=== PATIENT | female | born 1990 | race Caucasian/White ===

== ENCOUNTER 2020-06-15 06:12 | Inpatient (IN) ==
[2020-06-15] MEDS ORDERED: Metoclopramide 10 MG/2 ML VIAL IVP PRN (06:20)
[2020-06-15] MEDS ORDERED: Famotidine 20 MG/2 ML VIAL IVP PRN (06:20)
[2020-06-15] MEDS ORDERED: Lidocaine 1% 20 ML MDV INFILT PRN (06:20)
[2020-06-15] MEDS ORDERED: Naloxone 0.4 MG/ML INJ IVP PRN (06:20)
[2020-06-15] MEDS ORDERED: Oxytocin 20 units/ LR 1000 mL 20 UNIT/1,000 ML BAG IVC SCH (06:30)
[2020-06-15 08:01] LABS: Amphetamine Screen,Urine Negative ng/mL (Cutoff=1000); Barbiturate Screen,Urine Negative ng/mL (Cutoff=200); Benzodiazepines Screen,Urine Negative ng/mL (Cutoff=200); Cannabinoid Screen,Urine Negative ng/mL (Cutoff = 50); Cocaine Screen,Urine Negative ng/mL (Cutoff= 300); Opiate Screen,Urine Negative ng/mL (Cutoff=300); Phencyclidine Screen,Urine Negative ng/mL (Cutoff=25)
[2020-06-15] MEDS: Ringers Solution, Lactated 1,000 ML IVC SCH ×3 (08:37→17:28)
[2020-06-15 08:47] LABS: Basophils # 0.1 K/mcL (0.0-0.2); Basophils % 0.5 %; Eosinophils # 0.6 K/mcL (0.0-0.6); Eosinophils % 4.1 %; Hematocrit 34.9 % (35.3-44.9); Hemoglobin 11.8 g/dL (11.5-15.4); Immature Granulocytes % 0.6 % (0-4); Lymphocytes # 2.2 K/mcL (0.6-4.6); Lymphocytes % 16.1 %; Mean Corpuscular HGB Conc 33.8 g/dL (31.6-35.5); Mean Corpuscular Volume 106.4 fL (83.0-100.0); Mean Platelet Volume 9.8 fL (9.4-12.4); Monocytes # 0.7 K/mcL (0.0-1.3); Monocytes % 5.3 %; Neutrophils # 9.8 K/mcL (1.6-8.9); Platelet Count 253 K/mcL (140-400); Red Blood Count 3.28 M/mcL (3.82-4.97); Red Cell Distribution Width 13.7 % (11.5-14.5); Segmented Neutrophils % 73.4 %; White Blood Count 13.3 K/mcL (4.3-11.1)
[2020-06-15] MEDS ORDERED: *HR* FentaNYL (PF) 100 MCG/2 ML VIAL EP ONE (09:37)
[2020-06-15] MEDS ORDERED: EPHEDrine 50 MG/ML VIAL IVP PRN (09:37)
[2020-06-15] MEDS ORDERED: *HR* FentaNYL (PF) 100 MCG/2 ML VIAL ONE ×6 (09:40→20:18)
[2020-06-15 10:13] LABS: Influenza A PCR Negative (Negative); Influenza B PCR Negative (Negative); Resp. Syncytial Virus PCR Negative (Negative)
[2020-06-15 10:14] LABS: SARS-CoV-2 by PCR (In House) Negative (Negative)
[2020-06-15] MEDS: Epidural Premix (fent/bupiv) 110 ML EP SCH (14:26)
[2020-06-15] MEDS ORDERED: Bupivacaine-MPF 0.25% 10 ML VIAL ONE (17:19)
[2020-06-15] MEDS ORDERED: Ropivacaine/PF 0.2% 20 ML VIAL ONE (20:17)
[2020-06-16] MEDS ORDERED: *HR* FentaNYL (PF) 100 MCG/2 ML VIAL ONE ×2 (00:09→01:32)
[2020-06-16] MEDS: Epidural Premix (fent/bupiv) 110 ML EP SCH (01:10)
[2020-06-16] MEDS ORDERED: Lanolin 7 G OINT...G. TP PRN (06:17)
[2020-06-16] MEDS ORDERED: Oxytocin 20 units/ LR 1000 mL 20 UNIT/1,000 ML BAG IVC SCH (06:17)
[2020-06-16] MEDS ORDERED: Acetaminophen 325 MG TABLET PO PRN (06:17)
[2020-06-16] MEDS ORDERED: Benzocaine/Menthol 56 GM AEROSOL SPRAY TP PRN (06:17)
[2020-06-16] MEDS: *HR* Buprenorphine HCl 2 MG SUBLINGUAL TABLET SL SCH ×2 (08:22→20:02)
[2020-06-16] MEDS: Prenatal Vit/FA 1 EACH TABLET PO SCH (08:22)
[2020-06-16] MEDS: Ibuprofen 600 MG TABLET PO PRN ×2 (08:22→14:08)
[2020-06-16] MEDS ORDERED: *HR* Buprenorphine HCl 2 MG SUBLINGUAL TABLET SL SCH (09:00)
[2020-06-16] MEDS: Acetaminophen/Butalbital/CaffeineTABLET PO PRN ×2 (14:09→20:03)
[2020-06-16 20:09] VITALS: BP 104/70
[2020-06-17] MEDS: Acetaminophen/Butalbital/CaffeineTABLET PO PRN ×2 (02:29→09:22)
[2020-06-17] MEDS: Ibuprofen 600 MG TABLET PO PRN ×2 (02:29→09:22)
[2020-06-17 04:37] LABS: Basophils # 0.1 K/mcL (0.0-0.2); Basophils % 0.4 %; Eosinophils # 0.4 K/mcL (0.0-0.6); Eosinophils % 2.8 %; Hematocrit 27.8 % (35.3-44.9); Hemoglobin 9.4 g/dL (11.5-15.4); Immature Granulocytes % 0.6 % (0-4); Lymphocytes # 2.9 K/mcL (0.6-4.6); Lymphocytes % 23.6 %; Mean Corpuscular HGB Conc 33.8 g/dL (31.6-35.5); Mean Corpuscular Hemoglobin 35.5 pg (28.0-33.3); Mean Corpuscular Volume 104.9 fL (83.0-100.0); Mean Platelet Volume 9.3 fL (9.4-12.4); Monocytes # 0.7 K/mcL (0.0-1.3); Monocytes % 5.7 %; Neutrophils # 8.3 K/mcL (1.6-8.9); Platelet Count 205 K/mcL (140-400); Red Blood Count 2.65 M/mcL (3.82-4.97); Red Cell Distribution Width 13.9 % (11.5-14.5); Segmented Neutrophils % 66.9 %; White Blood Count 12.4 K/mcL (4.3-11.1)
[2020-06-17] MEDS: Prenatal Vit/FA 1 EACH TABLET PO SCH (09:22)
[2020-06-17] MEDS: *HR* Buprenorphine HCl 2 MG SUBLINGUAL TABLET SL SCH (09:22)
[2020-06-17] MEDS ORDERED: Ondansetron 4 MG/2 ML VIAL IVP ONE (09:29)
== END 2020-06-17 12:03 | disposition home or self-care (01) | DRG 560 ==
LOC: 1NENULAB 06:12 → 1NENUOBS 06-16 06:26
PROVIDERS: ADMIT Obstetrics & Gynecology; ATTEND Obstetrics & Gynecology